=== PATIENT | male | born 1945 | race Caucasian/White ===

== ENCOUNTER → 2016-12-30 | Outpatient (CLI) | payer MEDICARE ==
[~2016-12-30] MED LIST: AMLODIPINE5 M1 PO; ASPIRIN 81MG TA81 MG PO; CLONIDINE 0.2M0.2 MG PO; DILTIAZEM CD240 M1 PO; FERROUS SULFATE27 MG PO; FINASTERIDE5 MG PO; KLOR-CON M2020 MEQ PO; LASIX 40MG. TAB40 MG PO; LEVOTHYROXINE0.05 M3 PO; LOSARTAN POTAS100 MG PO; METOPROLOL SUC100 M1 PO; POTASSIUM CHLO10 ME3 PO; XARELTO20 MG PO; ZETIA10 MG PO
--- NOTE | 2016-12-31 07:58 | RADIOLOGY REPORT PS360 ---
EXAM: CT LUNG LOW DOSE WO CONTRAST COMPARISON: None HISTORY: 71 year old male with greater than 30 pack-year smoking history, asymptomatic ORDERING PHYSICIAN: Nayana Botello MD PATIENT AGE: 71 years TECHNIQUE: The exam was performed on a [employer] Light Speed [address] scanner using 2.95 mGy CTDI. A low dose helical CT CHEST was performed on a multi-detector scanner The LDCT was performed in a facility that meets the criteria for the screening program. Data regarding this exam was submitted to ACR which is an approved registry. The order for this exam indicates that it came as a result of a lung cancer screening counseling shard decision-making visit that included all the elements required of such a visit including smoking cessation. The radiologist interpreting this exam meets the [facility] criteria for the LDCT lung cancer screening program. The exam is reported using the Lung-RADS classification scale and reported to the ACR registry. NOTE: This study was performed for the specific purposes of lung cancer screening and is not an alternative to diagnostic chest CT. RADIATION DOSE: CTDI vol(CT dose Index-volume) = 2.95mG DLP (Dose Length Product) = 108.12 mGcm FINDINGS: Indeterminate or Suspicious Lung Nodules(Category3-4B): None Indeterminate/Non-actionable Nodules(Category2): 3 mm patchy groundglass density superior segment left lower lobe Benign nodules(Category1)None There is mild hyperinflation. Small cystic areas present in the left lung base medially 2.8 cm OTHER ANATOMIC REGIONS Lymph Nodes: No enlarged lymph nodes evident. Scattered small nodes are present in the mediastinum and antonietat Pleura: Unremarkable Cardiac: Coronary artery calcifications OTHER FINDINGS: No other pertinent findings evident IMPRESSION: 1. Lung RADS Category: 2, benign 2. Other findings: Coronary artery disease RECOMMENDATIONS: 12 month screening LDCT
--- NOTE | 2016-12-31 07:58 | RADIOLOGY REPORT PS360 ---
EXAM: CT LUNG LOW DOSE WO CONTRAST COMPARISON: None HISTORY: 71 year old male with greater than 30 pack-year smoking history, asymptomatic ORDERING PHYSICIAN: Nayana Botello MD PATIENT AGE: 71 years TECHNIQUE: The exam was performed on a GE Light Speed [address] scanner using 2.95 mGy CTDI. A low dose helical CT CHEST was performed on a multi-detector scanner The LDCT was performed in a facility that meets the criteria for the screening program. Data regarding this exam was submitted to ACR which is an approved registry. The order for this exam indicates that it came as a result of a lung cancer screening counseling shard decision-making visit that included all the elements required of such a visit including smoking cessation. The radiologist interpreting this exam meets the [facility] criteria for the LDCT lung cancer screening program. The exam is reported using the Lung-RADS classification scale and reported to the ACR registry. NOTE: This study was performed for the specific purposes of lung cancer screening and is not an alternative to diagnostic chest CT. RADIATION DOSE: CTDI vol(CT dose Index-volume) = 2.95mG DLP (Dose Length Product) = 108.12 mGcm FINDINGS: Indeterminate or Suspicious Lung Nodules(Category3-4B): None Indeterminate/Non-actionable Nodules(Category2): 3 mm patchy groundglass density superior segment left lower lobe Benign nodules(Category1)None There is mild hyperinflation. Small cystic areas present in the left lung base medially 2.8 cm OTHER ANATOMIC REGIONS Lymph Nodes: No enlarged lymph nodes evident. Scattered small nodes are present in the mediastinum and antonietta Pleura: Unremarkable Cardiac: Coronary artery calcifications OTHER FINDINGS: No other pertinent findings evident IMPRESSION: 1. Lung RADS Category: 2, benign 2. Other findings: Coronary artery disease RECOMMENDATIONS: 12 month screening LDCT
== END ==
LOC: RAD 12:46
DX: Z87.891 Personal history of nicotine dependence (principal); Z12.2 Encounter for screening for malignant neoplasm of respiratory organs
CPT/HCPCS: G0297

== ENCOUNTER 2017-02-18 08:03 | Day surgery (SDC) | payer MEDICARE ==
[~2017-02-18] VITALS: Ht 180.3 cm; Wt 111.6 kg
[2017-02-18 13:18] VITALS: BP 110/76
--- NOTE | 2017-02-28 08:51 | Operative Note ---
Endoscopy Report Date: 02/18/17 Preoperative diagnosis: History of polyps Procedure Type of procedure: Colonoscopy Indications: Patient is a 71-year-old white male from [place]. He had a colonoscopy in 2006 for screening purposes and had hyperplastic polyps. He has been asymptomatic. He did have a prior stroke and is in atrial fibrillation and on blood thinners. He underwent cardiac clearance. Patient was taken to same-day surgery endoscopy procedure room. Sedation was achieved with anesthesia titration of propofol. Colonoscope was inserted via the anus and advanced. Upon withdrawal careful surveillance was carried out. He did have some polyps removed. Colonoscope was withdrawn. Findings 1. Polyp Follow-Up Follow-Up: Follow up on pathology. Follow-up colonoscopy pending pathology findings at [id number]
== END 2017-02-18 11:40 | disposition home or self-care (01) ==
LOC: SDC 08:03
PROVIDERS: Surgery
PROC: 0DBE8ZX Excision of Large Intestine, Via Natural or Artificial Opening Endoscopic, Diagnostic (ICD-10-PCS; principal; 2017-02-18 09:00)
DX: Z12.11 Encounter for screening for malignant neoplasm of colon (principal); Z86.010 Personal history of colon polyps; K63.5 Polyp of colon